=== PATIENT | male | born 1955 | race Two or more races ===

== ENCOUNTER → 2024-10-18 | Emergency (ER) | payer OTHER | END | disposition home or self-care (01) | LOC: ER 14:58 | DX: S61.224A Laceration with foreign body of right ring finger without damage to nail, initial encounter (principal); W45.8XXA Other foreign body or object entering through skin, initial encounter; Y93.89 Activity, other specified; Y92.018 Other place in single-family (private) house as the place of occurrence of the external cause | CPT/HCPCS: 12002; 90471; 90714; J1670 ==